=== PATIENT | female | born 1945 | race Caucasian/White ===

== ENCOUNTER 2019-02-03 11:56 | Day surgery (SDC) | payer OTHER ==
[~2019-02-03] VITALS: Ht 149.9 cm; Wt 56.4 kg
[2019-02-03 12:42] VITALS: Ht 149.9 cm; Wt 56.4 kg
[2019-02-03] MEDS ORDERED: ASPIRIN DAILY (12:52)
[2019-02-03] MEDS ORDERED: LEVOTHYROXINE DAILY (12:52)
[2019-02-03] MEDS ORDERED: ATENOLOL DAILY (12:52)
[2019-02-03] MEDS ORDERED: HCTZ DAILY (12:52)
[2019-02-03] MEDS ORDERED: [UNRECOGNIZED DRUG - OTHER] (12:52)
[2019-02-03] MEDS ORDERED: PROPOFOL 40 ML ONE (13:02)
--- NOTE | 2019-02-03 13:08 | PREAC ---
Date/Time of Note Date/Time of Note DATE: 02/03/19 TIME: 13:07 Anesthesia Eval and Record Evaluation Time Pre-Procedure Interview DATE: 02/03/19 TIME: 13:07 Age 73 Sex female NPO: 8 hrs Preoperative diagnosis positive occult blood in stool Planned procedure colonoscopy Past Medical History Past Medical History: Includes Cardio: HTN, Dyslipidemia Endo: Hypothyroid Surgery & Anesthesia Issues No known issue Meds Anticoagulation: No Beta Jaky within 24 hr: Yes Reported Medications [Pravastatin Daily] No Conflict Check 02/03/19 [Hctz Daily] No Conflict Check 02/03/19 [Atenolol Daily] No Conflict Check 02/03/19 [Levothyroxine Daily] No Conflict Check 02/03/19 [Aspirin Daily] No Conflict Check 02/03/19 Meds reviewed: Yes Allergies Coded Allergies: Penicillins (Verified Allergy, Intermediate, RASH, 02/03/19) Allergies Reviewed: Yes Labs/Studies Labs Reviewed: Other (NA) test: N/A Pre-procedure Exam Airway: Adequate mouth opening Mallampati: Mallampati II Teeth: Normal Lung: Normal Heart: Normal ASA Physical Status ASA physical status: 2 Emergency: None Planned Anesthetic General/MAC: MAC Pre-operative Attestations Prior to commencing anesthesia and surgery, the patient was re-evaluated, there was verification of: *The patient's identity *The results of appropriate recent lab work and preoperative vital signs *The above evaluation not changing prior to induction *Anesthetic plan, risk benefits, alternative and complications discussed with patient/family; questions answered; patient/family understands, accepts and wishes to proceed. ATWNYA ALBERT February 03, 2019 13:08
[2019-02-03 13:20] VITALS: BP 159/77; PULSE 65; RESP 16
--- NOTE | 2019-02-03 13:48 | PAC ---
Date/Time of Note Date/Time of Note DATE: 02/03/19 TIME: 13:48 Post-Anesthesia Notes Post-Anesthesia Note Last documented vital signs Vital Signs Date Temp Pulse Resp B/P (MAP) Pulse Ox O2 O2 Flow FiO2 Time Delivery Rate 02/03/19 97.4 65 16 159/77 100 Room Air 13:50 (104) Activity: WNL Respiratory function: WNL Cardiovascular function: WNL Mental status: Baseline Pain reasonably controlled: Yes Hydration appropriate: Yes Nausea/Vomiting absent: Yes KIMBERLYN LEW MD February 03, 2019 13:48
[2019-02-03 14:15] VITALS: BP 121/65; PULSE 58; RESP 16
== END 2019-02-03 16:21 | disposition home or self-care (01) ==
LOC: GIL 11:56
PROVIDERS: ATTEND Internal Medicine Gastroenterology
DX: K92.1 Melena (principal); K64.8 Other hemorrhoids; D12.3 Benign neoplasm of transverse colon; D12.8 Benign neoplasm of rectum; I10 Essential (primary) hypertension; E03.9 Hypothyroidism, unspecified
CPT/HCPCS: 88305